=== PATIENT | male | born 1950 | race African-American/Black ===

== ENCOUNTER 2016-10-01 06:05 | Outpatient (CLI) | payer OTHER ==
[2016-10-01 06:39] LABS: Anion Gap 15 mmol/L (10-20); BUN (Urea Nitrogen) 17 mg/dL (8.4-25.7); Calc. Creatinine Clearance 0 mL/min (70-130); Carbon Dioxide 25 mmol/L (23-31); Chloride 107 mmol/L (98-107); Estimated GFR-MDRD 44; Glucose 101 mg/dL (80-115); Sodium 143 mmol/L (136-145)
== END 2016-10-01 06:06 | disposition home or self-care (01) ==
LOC: BURLAB 06:05
PROVIDERS: ATTEND Internal Medicine Nephrology
DX: N18.3 Chronic kidney disease, stage 3 (moderate) (principal)
CPT/HCPCS: 36415; 80048

== ENCOUNTER 2016-11-27 09:17 | Outpatient (CLI) | payer OTHER ==
--- NOTE | 2016-11-27 21:21 | RAD ---
LEFT WRIST THREE VIEWS 11/27/16 No prior films are available for comparison. The distance between the scaphoid and lunate is excessive at 6 mm (2.5 mm is upper normal). This fin ding suggest scapholunate dissociation. In addition, there are a few irregularities of the scaphoid suggesting that there may have been old trauma here. There is narrowing of the radiocarpal joint sug gesting usp arthritic change here. No acute bony changes were appreciated. Two of the views hanson ggest there may be a tiny opaque foreign body just medial to the triquetrum and pisiform. IMPRESSION: 1. Marked scapholunate dissociation. 2. Reduction in width of the radiocarpal joint. Code T POS: HOME
== END 2016-11-27 09:18 | disposition home or self-care (01) ==
LOC: BURRAD 09:17
PROVIDERS: ATTEND Family Medicine
DX: M25.532 Pain in left wrist (principal); S63.592A Other specified sprain of left wrist, initial encounter; M25.832 Other specified joint disorders, left wrist
CPT/HCPCS: 36415; 83540; 83550; 84550

== ENCOUNTER 2016-11-27 09:41 | Outpatient (CLI) | payer OTHER ==
[2016-11-27 11:19] LABS: Uric Acid 5.1 mg/dL (3.5-7.2)
== END 2016-11-27 09:42 | disposition home or self-care (01) ==
LOC: HPCALD 09:41
PROVIDERS: ATTEND Family Medicine
DX: M25.532 Pain in left wrist (principal); D50.9 Iron deficiency anemia, unspecified
CPT/HCPCS: 36415; 83540; 83550; 84550

== ENCOUNTER 2017-01-20 08:25 | Outpatient (CLI) | payer OTHER ==
[2017-01-20 09:22] LABS: Anion Gap 13 mmol/L (10-20); BUN (Urea Nitrogen) 21 mg/dL (8.4-25.7); Calc. Creatinine Clearance 0 mL/min (70-130); Calcium 9.2 mg/dL (7.8-10.44); Carbon Dioxide 25 mmol/L (23-31); Chloride 106 mmol/L (98-107); Estimated GFR-MDRD 44; Glucose 103 mg/dL (80-115); Potassium 3.8 mmol/L (3.5-5.1); Sodium 140 mmol/L (136-145)
[2017-01-20 09:54] LABS: #Basophils 0.1 thou/uL (0.0-0.2); #Eosinphils 0.3 thou/uL (0.0-0.7); #Lymphocytes 2.5 thou/uL (1.20-3.40); #Monocytes 0.7 thou/uL (0.11-0.59); #Neutrophils 3.5 thou/uL (1.40-6.50); %Basophils 0.9 % (0.0-1.0); %Eosinophils 4.6 % (0.0-10.0); %Lymphocytes 34.6 % (21.0-51.0); %Monocytes 9.8 % (0.0-10.0); Hemoglobin 13.4 g/dL (14.0-18.0); Mean Corpuscular Hemoglobin 23.9 pg (27.0-31.0); Mean Corpuscular Volume 79.5 fl (80.0-94.0); Mean Platelet Volume 9.4 fL (7.4-10.4); Platelet Count 194 thou/uL (130-400); RBC Distribution Width 12.6 % (11.5-14.5); Red Blood Cell (RBC) Count 5.63 mill/uL (4.70-6.10); White Blood Cell (WBC) Count 7.1 thou/uL (4.8-10.8)
[2017-01-20 10:49] LABS: PLT Morphology Comment Appears Adequate; RBC Morphology Normal
[2017-01-20 11:50] LABS: Phosphorus 3.1 mg/dL (2.3-4.7)
== END 2017-01-20 08:26 | disposition home or self-care (01) ==
LOC: BURLAB 08:25
PROVIDERS: ATTEND Internal Medicine Nephrology
DX: N18.3 Chronic kidney disease, stage 3 (moderate) (principal)
CPT/HCPCS: 36415; 80048; 83970; 84100; 85025

== ENCOUNTER 2018-07-08 08:40 | Outpatient (CLI) | payer OTHER ==
[2018-07-08 12:21] LABS: #Eosinphils 0.2 thou/uL (0.0-0.7); #Lymphocytes 1.9 thou/uL (1.20-3.40); #Monocytes 0.5 thou/uL (0.11-0.59); #Neutrophils 4.1 thou/uL (1.40-6.50); %Basophils 0.4 % (0.0-1.0); %Eosinophils 3.1 % (0.0-10.0); %Lymphocytes 28.2 % (21.0-51.0); %Monocytes 7.9 % (0.0-10.0); %Neutrophils 60.4 % (42.0-75.0); Hemoglobin 12.6 g/dL (14.0-18.0); MDiff Complete? YES; Mean Corpuscular HGB CONC 29.5 g/dL (32.0-36.0); Mean Corpuscular Hemoglobin 23.8 pg (27.0-31.0); Mean Platelet Volume 8.9 fL (7.4-10.4); Platelet Count 274 thou/uL (130-400); Polychromasia MODERATE = 3-4 cells (100X) (0-2/hpf); RBC Distribution Width 12.6 % (11.5-14.5); Red Blood Cell (RBC) Count 5.29 mill/uL (4.70-6.10); White Blood Cell (WBC) Count 6.7 thou/uL (4.8-10.8)
[2018-07-08 12:27] LABS: PSA-Asymptomatic (SCREENING) Less than 0.02 ng/mL (0-4.0); Thyroid Stimulating Hormone 1.6347 uIU/mL (0.35-4.94)
[2018-07-08 12:30] LABS: ALT (SGPT) 15 U/L (8-55); AST (SGOT) 17 U/L (5-34); Albumin 4.3 g/dL (3.4-4.8); Alkaline Phosphatase 72 U/L (40-150); Anion Gap 14 mmol/L (10-20); BUN (Urea Nitrogen) 20 mg/dL (8.4-25.7); Bilirubin, Total 0.5 mg/dL (0.2-1.2); Calc. Creatinine Clearance 0 mL/min (70-130); Calcium 9.6 mg/dL (7.8-10.44); Carbon Dioxide 28 mmol/L (23-31); Cardiac Risk 3.2 (Less than 4.5); Chloride 102 mmol/L (98-107); Cholesterol 188 mg/dl (< 200 Desired); Estimated GFR-MDRD 46; Globulin 3.6 g/dL (2.4-3.5); Glucose 111 mg/dL (80-115); HDL Cholesterol 58 mg/dL (>60 Neg Risk); LDL Cholesterol, Calculated 117 mg/dL; Potassium 4.1 mmol/L (3.5-5.1); Protein, Total 7.9 g/dL (5.8-8.1); Sodium 140 mmol/L (136-145); Triglycerides 67 mg/dL (Less than 150)
--- NOTE | 2018-07-09 09:35 | ULT ---
SOFT TISSUE EXTREMITY ULTRASOUND: History: Evaluate size of hematoma. Comparison: 06-26-18 Technique: Sonographic imaging of the left calf was performed. Static images are reviewed. FINDINGS: Re-demonstration of an avascular hypoechoic focus in the left calf measuring 1.8 x 5.3 x 3.4 cm. This collection measured 4.8 x 1.5 x 3.4 cm. No appreciable change. IMPRESSION: Stable soft tissue lesion in the left calf, presumed to be a hematoma given lack of vascular flow. C ontinued follow up to resolution is recommended. POS: AMPARO
== END 2018-07-08 08:41 | disposition home or self-care (01) ==
LOC: BURULT 08:40
PROVIDERS: ATTEND Family Medicine
DX: S80.12XD Contusion of left lower leg, subsequent encounter (principal); Z12.5 Encounter for screening for malignant neoplasm of prostate; I10 Essential (primary) hypertension; M79.89 Other specified soft tissue disorders
CPT/HCPCS: 36415; 76882; 80053; 80061; 84443; 85025; G0103

== ENCOUNTER 2019-04-14 22:41 | Emergency (ER) | payer MEDICARE | END 2019-04-14 23:45 | disposition home or self-care (01) | LOC: BURERS 22:41 | DX: J06.9 Acute upper respiratory infection, unspecified (principal); E78.5 Hyperlipidemia, unspecified; I10 Essential (primary) hypertension; Z79.82 Long term (current) use of aspirin; Z79.899 Other long term (current) drug therapy | CPT/HCPCS: 87804; 99283 ==

== ENCOUNTER 2019-07-08 14:58 | Outpatient (CLI) | payer MEDICARE ==
--- NOTE | 2019-07-08 22:34 | RAD ---
RIGHT SHOULDER THREE VIEWS: 07/08/19 No fracture or AC joint widening was seen. There is bony spurring on the undersurface of the AC joint and perhaps some very slight spurring beginning in the glenohumeral joint. The surrounding bones wer e otherwise unremarkable. IMPRESSION: Mild arthritic changes. POS: HOME
== END 2019-07-08 14:59 | disposition home or self-care (01) ==
LOC: BURRAD 14:58
PROVIDERS: ATTEND Family Medicine
DX: M25.511 Pain in right shoulder (principal); M19.011 Primary osteoarthritis, right shoulder

== ENCOUNTER → 2020-05-23 | Emergency (ER) | payer MEDICARE ==
[~2020-05-23] MED LIST: Acetaminophen 325 MG TAB ONE; Albuterol 200 PUFF (6.7GM INHALER) ONE; Aspirin Chewable 81 MG TAB ONE; Doxycycline 100 MG CAP ONE
[2020-05-23 00:48] LABS: #Lymphocytes 1.2 thou/uL (1.20-3.40); #Monocytes 0.3 thou/uL (0.11-0.59); #Neutrophils 2.8 thou/uL (1.40-6.50); %Basophils 0.9 % (0.0-1.0); %Eosinophils 0.1 % (0.0-10.0); %Lymphocytes 27.6 % (21.0-51.0); %Monocytes 6.1 % (0.0-10.0); %Neutrophils 65.2 % (42.0-75.0); Hemoglobin 12.2 g/dL (14.0-18.0); Mean Corpuscular HGB CONC 29.7 g/dL (32.0-36.0); Mean Corpuscular Hemoglobin 23.5 pg (27.0-31.0); Mean Corpuscular Volume 79.2 fL (78.0-98.0); Mean Platelet Volume 9.1 fL (7.4-10.4); Platelet Count 126 thou/uL (130-400); RBC Distribution Width 13.1 % (11.5-14.5); Red Blood Cell (RBC) Count 5.17 mill/uL (4.70-6.10); White Blood Cell (WBC) Count 4.4 thou/uL (4.8-10.8)
[2020-05-23 00:58] LABS: ALT (SGPT) 33 U/L (8-55); AST (SGOT) 43 U/L (5-34); Albumin 4.1 g/dL (3.4-4.8); Alkaline Phosphatase 50 U/L (40-110); Anion Gap 17 mmol/L (10-20); BUN (Urea Nitrogen) 26 mg/dL (8.4-25.7); Bilirubin, Total 1.1 mg/dL (0.2-1.2); Calc. Creatinine Clearance 0 mL/min (70-130); Calcium 8.9 mg/dL (7.8-10.44); Carbon Dioxide 26 mmol/L (23-31); Chloride 96 mmol/L (98-107); Globulin 3.9 g/dL (2.4-3.5); Glucose 121 mg/dL (80-115); Potassium 3.9 mmol/L (3.5-5.1); Sodium 135 mmol/L (136-145)
[2020-05-23 01:08] LABS: MDiff Complete? YES; Platelet Morphology Comment Appears Decreased; Poikilocytosis SLIGHT = 6-15 cells (100X) (0-5/hpf)
[2020-05-23 01:17] LABS: CKMB 1.4 ng/mL (0-6.6)
[2020-05-23 02:14] LABS: SARS-CoV-2 NAA Rapid Test DETECTED (NotDetected)
--- NOTE | 2020-05-23 07:26 | RAD ---
PORTABLE CHEST: Date: 05/23/2020 An AP portable film at 0037 hours is compared with the 01/01/2013 study. The right hemidiaphragm is always slightly elevated in this patient. There is some linear streaking o sarah the diaphragm, much more so today than before. This is presumably atelectasis, though some part c ould be scarring or acute infiltrate. The lungs are otherwise clear. The mediastinum is unremarkable. The heart size is normal for an AP projection, age, and body habitus. IMPRESSION: Linear streaking in the right base. POS: HOME
== END ==
LOC: BURERS
DX: U07.1 COVID-19 (principal); J12.82 Pneumonia due to coronavirus disease 2019; N17.9 Acute kidney failure, unspecified; E78.5 Hyperlipidemia, unspecified; I10 Essential (primary) hypertension; Z79.82 Long term (current) use of aspirin; Z79.899 Other long term (current) drug therapy
CPT/HCPCS: 0240U; 71045; 80053; 82553; 83605; 83880; 84484; 85025; 93005

== ENCOUNTER 2020-12-30 17:57 | Emergency (ER) | payer MEDICARE | END 2020-12-30 19:20 | disposition home or self-care (01) | LOC: BURERS 17:57 | DX: I10 Essential (primary) hypertension (principal); E78.5 Hyperlipidemia, unspecified; Z79.82 Long term (current) use of aspirin; Z79.899 Other long term (current) drug therapy | CPT/HCPCS: 99283 ==

== ENCOUNTER 2024-04-16 05:42 | Emergency (ER) | payer MEDICARE ==
[2024-04-16] MEDS ORDERED: Ipratropium/Albuterol 3 ML NEB ONE ×2 (06:05→07:20)
[2024-04-16] MEDS ORDERED: methylPREDNISolone Sod Succ/PF 125 MG/2 ML VIAL ONE (06:21)
[2024-04-16 06:32] LABS: Band 1 % (5-11); Hematocrit 36.9 % (42.0-52.0); Hemoglobin 10.9 g/dL (14.0-18.0); Hypochromia SLIGHT = 6-15 cells (100X) (0-5/hpf); Lymphocytes 24 % (21-51); MDiff Complete? YES; Mean Corpuscular HGB CONC 29.6 g/dL (32.0-36.0); Mean Corpuscular Volume 77.7 fl (78.0-98.0); Mean Platelet Volume 9.2 fL (7.4-10.4); Microcytosis SLIGHT = 6-15 cells (100X) (0-5/hpf); Monocytes 6 % (0-10); Neutrophil 69 % (42-75); Ovalocytes SLIGHT = 2-5 cells (100X) (0-1/hpf); Platelet Count 170 10x3/uL (130-400); RBC Distribution Width 12.7 % (11.5-14.5); Red Blood Cell (RBC) Count 4.74 mill/uL (4.70-6.10); Vacuoles SLIGHT; White Blood Cell (WBC) Count 7.7 10x3/uL (4.8-10.8)
[2024-04-16 06:35] LABS: ALT (SGPT) 23 U/L (8-55); AST (SGOT) 39 U/L (5-34); Albumin 3.8 g/dL (3.4-4.8); Alkaline Phosphatase 55 U/L (40-110); Anion Gap 20 mmol/L (10-20); BUN (Urea Nitrogen) 36 mg/dL (8.4-25.7); Bilirubin, Total 0.5 mg/dL (0.2-1.2); Calc. Creatinine Clearance 0 mL/min (70-130); Calcium 9.6 mg/dL (7.8-10.44); Carbon Dioxide 23 mmol/L (23-31); Chloride 100 mmol/L (98-107); Estimated GFR 12; Globulin 4.3 g/dL (2.4-3.5); Glucose 112 mg/dL (83-110); Potassium 3.7 mmol/L (3.5-5.1); Protein, Total 8.1 g/dL (5.8-8.1); Sodium 139 mmol/L (136-145)
[2024-04-16] MEDS ORDERED: cefTRIAXone (ROCEPHIN) 1 GM VIAL ONE (06:46)
[2024-04-16] MEDS ORDERED: Sodium Chloride 0.9% 100 ML ONE (06:47)
[2024-04-16 06:59] LABS: Bilirubin Negative (Negative); Blood, Urine Moderate (Negative); Clarity Clear (Clear); Glucose, Urine (Dipstick) Negative (Negative); Ketone, Urine Negative (Negative); Leukocyte Negative (Negative); Nitrite Negative (Negative); Protein, Urine (Dipstick) > or equal to 300 mg/dL (Neg-Trace); Urobilinogen 0.2 mg/dL (Less than 2); pH, Urine 6.5 (5.0-9.0)
[2024-04-16 07:02] LABS: Bacteria/HPF None Seen HPF (None Seen); CAUTI Indications for Culture Alt mental st,lethar; RBC/HPF 0-3 HPF (0-3); Squamous Epithelial None Seen HPF (0-3); WBC/HPF 0-3 HPF (0-3)
[2024-04-16 07:03] LABS: Urine Culture Reflex No No
[2024-04-16] MEDS ORDERED: Oseltamivir 75 MG CAP ONE (07:03)
[2024-04-16] MEDS ORDERED: Metoprolol Tartrate 50 MG TAB ONE (10:54)
[2024-04-16] MEDS ORDERED: NIFEdipine XL 30 MG ER.TAB ONE (10:55)
== END 2024-04-16 13:05 | disposition short-term general hospital (02) ==
LOC: BURERS 05:42
DX: J10.00 Influenza due to other identified influenza virus with unspecified type of pneumonia (principal); R79.89 Other specified abnormal findings of blood chemistry; R79.1 Abnormal coagulation profile; N28.9 Disorder of kidney and ureter, unspecified; I10 Essential (primary) hypertension; E78.5 Hyperlipidemia, unspecified; Z79.82 Long term (current) use of aspirin; Z79.899 Other long term (current) drug therapy
CPT/HCPCS: 71045; 80053; 81001; 83605; 83880; 84484; 85025; 85379; 87040; 87428; 93005; 94760; 96361; 96365; 96375; 99285; J0696; J2919; 36415; J7620

== ENCOUNTER 2024-04-19 15:09 | Emergency (ER) | payer MEDICARE ==
[2024-04-19] MEDS ORDERED: Ipratropium/Albuterol 3 ML NEB ONE (15:42)
[2024-04-19] MEDS ORDERED: Magnesium 2 GM/50 ML BAG (IN WATER) ONE (15:51)
[2024-04-19] MEDS ORDERED: methylPREDNISolone Sod Succ/PF 125 MG/2 ML VIAL ONE (15:51)
[2024-04-19 16:10] LABS: ALT (SGPT) 26 U/L (8-55); AST (SGOT) 33 U/L (5-34); Albumin 3.4 g/dL (3.4-4.8); Alkaline Phosphatase 43 U/L (40-110); Anion Gap 19 mmol/L (10-20); BUN (Urea Nitrogen) 47 mg/dL (8.4-25.7); Bilirubin, Total 0.4 mg/dL (0.2-1.2); Calc. Creatinine Clearance 0 mL/min (70-130); Calcium 8.9 mg/dL (7.8-10.44); Carbon Dioxide 23 mmol/L (23-31); Chloride 103 mmol/L (98-107); Estimated GFR 15; Globulin 4.1 g/dL (2.4-3.5); Glucose 237 mg/dL (83-110); Potassium 4.4 mmol/L (3.5-5.1); Protein, Total 7.5 g/dL (5.8-8.1); Sodium 141 mmol/L (136-145)
[2024-04-19 16:14] LABS: #Basophils 0.3 thou/uL (0.0-0.2); #Lymphocytes 0.8 thou/uL (1.20-3.40); #Monocytes 0.5 thou/uL (0.11-0.59); #Neutrophils 7.9 thou/uL (1.40-6.50); %Basophils 2.8 % (0.0-1.0); %Lymphocytes 8.3 % (21.0-51.0); %Monocytes 4.8 % (0.0-10.0); %Neutrophils 84.1 % (42.0-75.0); Hemoglobin 10.7 g/dL (14.0-18.0); Hypochromia SLIGHT = 6-15 cells (100X) (0-5/hpf); MDiff Complete? YES; Mean Corpuscular HGB CONC 30.6 g/dL (32.0-36.0); Mean Corpuscular Hemoglobin 23.4 pg (27.0-31.0); Mean Corpuscular Volume 76.3 fl (78.0-98.0); Mean Platelet Volume 8.6 fL (7.4-10.4); Microcytosis SLIGHT = 6-15 cells (100X) (0-5/hpf); Platelet Count 204 10x3/uL (130-400); RBC Distribution Width 12.6 % (11.5-14.5); Red Blood Cell (RBC) Count 4.59 mill/uL (4.70-6.10); White Blood Cell (WBC) Count 9.4 10x3/uL (4.8-10.8)
[2024-04-19] MEDS ORDERED: Azithromycin 250 MG TAB ONE (17:30)
== END 2024-04-19 17:30 | disposition home or self-care (01) ==
LOC: BURERS 15:09
DX: J11.00 Influenza due to unidentified influenza virus with unspecified type of pneumonia (principal); I10 Essential (primary) hypertension; E78.5 Hyperlipidemia, unspecified; Z79.899 Other long term (current) drug therapy; Z79.82 Long term (current) use of aspirin
CPT/HCPCS: 36415; 71045; 80053; 85025; 93005; 96374; 96375; J2919; J3475; J7620